=== PATIENT | male | born 1985 | race Caucasian/White ===

== ENCOUNTER 2017-01-21 17:40 | Emergency (ER) | payer BC ==
[2017-01-21] MEDS ORDERED: ONDANSETRON 4 MG/2 ML VIAL IVP STA (20:14)
[2017-01-21] MEDS ORDERED: SODIUM CHLORIDE 0.9% 1,000 ML IV STA (20:14)
[2017-01-21 20:30] LABS: Basophils # (A) 0.1 k/uL (0-0.2); Basophils % (A) 0 %; CH 28.9; CHCM 35.3; Eosinophils % (A) 0 %; HGB 15.3 gm/dL (13.0-17.5); Luc # (Auto) 0.08; Luc % (Auto) 1; Lymphocytes # (A) 1.1 k/uL (1.0-4.8); Lymphocytes % (A) 10 %; MCH 28.7 pg (25.0-35.0); MCHC 34.9 g/dL (31.0-37.0); MCV 82.3 fL (80.0-100.0); Mean Platelet Volume 8.3; Monocytes # (A) 0.2 k/uL (0-1.0); Monocytes % (A) 2 %; Neutrophils # (A) 9.6 k/uL (1.3-7.7); Neutrophils % (A) 87 %; RBC 5.34 m/uL (4.30-5.90); WBC (Perox) 10.67
[2017-01-21 20:38] LABS: ALT 45 U/L (21-72); AST 47 U/L (17-59); Alkaline Phosphatase 69 U/L (38-126); Amylase 64 U/L (30-110); Anion Gap 14 mmol/L; Blood Urea Nitrogen 15 mg/dL (9-20); Calcium 9.9 mg/dL (8.4-10.2); Carbon Dioxide 23 mmol/L (22-30); Chloride 104 mmol/L (98-107); Glucose 100 mg/dL (74-99); Non-African American GFR(MDRD) >60 (>60 ml/min/1.73 sqM); Potassium 4.8 mmol/L (3.5-5.1); Sodium 141 mmol/L (137-145); Total Protein 8.5 g/dL (6.3-8.2)
[2017-01-21 20:40] LABS: Amorphous Sediment,Urine Occasional /hpf; Appearance,Urine Cloudy (Clear); Bilirubin,Urine Negative (Negative); Glucose,Urine (UA) Negative (Negative); Ketones,Urine 2+ (Negative); Leukocyte Esterase,Urine Negative (Negative); Mucus,Urine Rare /hpf; Nitrite,Urine Negative (Negative); Particle Count 13955; Protein,Urine 1+ (Negative); RBC,Urine >182 /hpf (0-5); Specific Gravity,Urine 1.021 (1.001-1.035); UA Billing (MACRO vs. MICRO) MICRO; Urobilinogen,Urine <2.0 mg/dL (<2.0); WBC,Urine 5 /hpf (0-5)
--- NOTE | 2017-01-21 21:24 | CT ---
EXAMINATION TYPE: CT abdomen pelvis wo con DATE OF EXAM: 01/21/2017 9:09 PM HISTORY: Pelvic pain with urination changes CT DLP: 402.8 mGycm. Automated Exposure Control for Dose Reduction was Utilized. TECHNIQUE: CT scan of the abdomen and pelvis is performed without oral or IV contrast. COMPARISON: NONE FINDINGS: Within the limitations of a non-contrast study, the following observations are made. LUNG BASES: Dependent atelectatic change in both lung bases is present. LIVER/GB: No significant abno rmality is appreciated. PANCREAS: No significant abnormality is seen. SPLEEN: No significant abnormality is seen. ADRENALS: No significant abnormality is seen. KIDNEYS: There is 2 mm distal left ureter calculus on axial image 123 right before UVJ with asymmetri c mild left-sided pyelocaliectasis and proximal hydroureter. No additional renal calculi are seen forrest aterally. No right-sided hydronephrosis is seen. No intraluminal calculus and bladder is noted. BOWEL: Normal-appearing appendix is seen from cecum. GENITAL ORGANS: No gross abnormality seen. LYMPH NODES: No greater than 1cm abdominal or pelvic lymph nodes are appreciated. OSSEOUS STRUCTURES: No significant abnormality is seen. OTHER: No significant additional abnormality is seen. IMPRESSION: There is 2 mm partially obstructing calculus in distal left ureter causing mild left-side d hydronephrosis.
--- NOTE | 2017-01-21 21:25 | XR ---
EXAMINATION TYPE: XR KUB DATE OF EXAM: 01/21/2017 8:35 PM CLINICAL HISTORY: Abdominal pain with nausea. TECHNIQUE: 2 upright KUB images of the abdomen are obtained.. COMPARISON: None. FINDINGS: There is some paucity of bowel gas. Visualized gas is noted in nondistended stomach as well as small and large bowel loops. There is no visceromegaly, pneumoperitoneum, or abnormal calcifica tion appreciated. The lung bases are clear and the osseous structures are intact. IMPRESSION: Overall nonobstructive bowel gas pattern.
[2017-01-21 21:28] VITALS: BP 140/90; PULSE 90; RESP 18; TEMP 98.5
--- NOTE | 2017-01-21 21:56 | ED ---
Abdominal Pain HPI - General Chief Complaint: Abdominal Pain Stated Complaint: abd pain Time Seen by Provider: 01/21/17 20:03 Source: patient, RN notes reviewed Mode of arrival: ambulatory Limitations: no limitations - History of Present Illness Initial Comments: Patient is a 31 year old male with one day of lower suprapubic pain. Patient denies any hsitory of kidney stones but did notice some blood in his urine. Patient states he had the sharp pain, and vomited, but then the pain has subsieded. Patient states that his pain is 0/10 at this time. Patient has some mild suprapubic tenderness, denies any BACK PAIN. Denies possibility for STI or penile discharge. - Related Data Home Medications Medication Instructions Recorded Confirmed Buprenorphine HCl/Naloxone HCl 1 tab SL TID 01/21/17 01/21/17 [Zubsolv 5.7-1.4 mg Tablet Sl] Previous Rx's Medication Instructions Recorded Ketorolac [Toradol] 10 mg PO Q6HR #12 tab 01/21/17 Tamsulosin [Flomax] 0.4 mg PO DAILY #5 cap 01/21/17 Allergies Allergy/AdvReac Type Severity Reaction Status Date / Time Penicillins Allergy Unknown Verified 01/21/17 20:17 Childhood Review of Systems ROS Statement: Those systems with pertinent positive or pertinent negative responses have been documented in the HPI. ROS Other: All systems not noted in ROS Statement are negative. Past Medical History Past Medical History: No Reported History History of Any Multi-Drug Resistant Organisms: None Reported Past Surgical History: No Surgical Hx Reported Past Psychological History: No Psychological Hx Reported Smoking Status: Current every day smoker Past Alcohol Use History: None Reported Past Drug Use History: None Reported General Exam - General Exam Comments Initial Comments: Well apearing 31 year old male, no distress. Limitations: no limitations General appearance: alert, in no apparent distress Head exam: Present: atraumatic, normocephalic, normal inspection Eye exam: Present: normal appearance, PERRL, EOMI. Absent: scleral icterus, conjunctival injection, periorbital swelling ENT exam: Present: normal exam, mucous membranes moist Neck exam: Present: normal inspection. Absent: tenderness, meningismus, lymphadenopathy Respiratory exam: Present: normal lung sounds bilaterally. Absent: respiratory distress, wheezes, rales, rhonchi, stridor Cardiovascular Exam: Present: regular rate, normal rhythm, normal heart sounds. Absent: systolic murmur, diastolic murmur, rubs, gallop, clicks GI/Abdominal exam: Present: soft, normal bowel sounds. Absent: distended, guarding, rebound, rigid Back exam: Present: normal inspection Neurological exam: Present: alert, oriented X3, CN II-XII intact Psychiatric exam: Present: normal affect, normal mood Skin exam: Present: warm, dry, intact, normal color. Absent: rash Course Vital Signs 01/21/17 01/21/17 18:06 21:27 Temperature 98.1 F 98.5 F Pulse Rate 95 90 Respiratory 20 18 Rate Blood Pressure 143/86 140/90 O2 Sat by Pulse 100 99 Oximetry Medical Decision Making - Medical Decision Making Patient is a 31 year old male with one day of lower suprapubic pain. Patient denies any hsitory of kidney stones but did notice some blood in his urine. Patient states he had the sharp pain, and vomited, but then the pain has subsieded. Patient states that his pain is 0/10 at this time. Patient has some mild suprapubic tenderness, denies any BACK PAIN. Denies possibility for STI or penile discharge. Patient urinalysis, patient has significant hematuria. Patient given toradol. CT shows 3mm stone in left vesicoureter causeing mild hyrdonephrosis. Patient will be discharged with Flomax, toradol, and patient reports he is taking subsolv so he does not want narcotic pain medication. PAtient agrees with treatment plan and will comply. - Lab Data Result diagrams: 01/21/17 19:56 01/21/17 19:56 Lab Results 01/21/17 01/21/17 01/21/17 Range/Units 19:56 19:56 19:56 WBC 11.0 H (3.8-10.6) k/uL RBC 5.34 (4.30-5.90) m/uL Hgb 15.3 (13.0-17.5) gm/dL Hct 44.0 (39.0-53.0) % MCV 82.3 (80.0-100.0) fL MCH 28.7 (25.0-35.0) pg MCHC 34.9 (31.0-37.0) g/dL RDW 13.0 (11.5-15.5) % Plt Count 196 (150-450) k/uL Neutrophils % 87 % Lymphocytes % 10 % Monocytes % 2 % Eosinophils % 0 % Basophils % 0 % Neutrophils # 9.6 H (1.3-7.7) k/uL Lymphocytes # 1.1 (1.0-4.8) k/uL Monocytes # 0.2 (0-1.0) k/uL Eosinophils # 0.0 (0-0.7) k/uL Basophils # 0.1 (0-0.2) k/uL Sodium 141 (137-145) mmol/L Potassium 4.8 (3.5-5.1) mmol/L Chloride 104 (98-107) mmol/L Carbon Dioxide 23 (22-30) mmol/L Anion Gap 14 mmol/L BUN 15 (9-20) mg/dL Creatinine 0.81 (0.66-1.25) mg/dL Est GFR (MDRD) Af Amer >60 (>60 ml/min/1.73 sqM) Est GFR (MDRD) Non-Af >60 (>60 ml/min/1.73 sqM) Glucose 100 H (74-99) mg/dL Calcium 9.9 (8.4-10.2) mg/dL Total Bilirubin 1.0 (0.2-1.3) mg/dL AST 47 (17-59) U/L ALT 45 (21-72) U/L Alkaline Phosphatase 69 (38-126) U/L Total Protein 8.5 H (6.3-8.2) g/dL Albumin 5.2 H (3.5-5.0) g/dL Amylase 64 (30-110) U/L Lipase 78 (23-300) U/L Urine Color Yellow Urine Appearance Cloudy (Clear) Urine pH 7.0 (5.0-8.0) Ur Specific [place] 1.021 (1.001-1.035) Urine Protein 1+ H (Negative) Urine Glucose (UA) Negative (Negative) Urine Ketones 2+ H (Negative) Urine Blood Large H (Negative) Urine Nitrite Negative (Negative) Urine Bilirubin Negative (Negative) Urine Urobilinogen <2.0 (<2.0) mg/dL Ur Leukocyte Esterase Negative (Negative) Urine RBC >182 H (0-5) /hpf Urine WBC 5 (0-5) /hpf Amorphous Sediment Occasional H (None) /hpf Urine Mucus Rare H (None) /hpf - Radiology Data Radiology results: report reviewed 2mm left ureter stone, parially obststructing. left mild hydronephrosis. Disposition Clinical Impression: Left ureteral stone Disposition: HOME SELF-CARE Condition: Stable Instructions: Ureteral Stones (ED) Additional Instructions: Patient is to rest, increase fluids and take prescription as directed. Return the emergency Department if any alarming signs or symptoms occur. Prescriptions: Ketorolac [Toradol] 10 mg PO Q6HR #12 tab Tamsulosin [Flomax] 0.4 mg PO DAILY #5 cap Referrals: Kevon Borja MD [Primary Care Provider] - 1-2 days Time of Disposition: 21:50
[2017-01-21] MEDS ORDERED: KETOROLAC 30 MG/ML 1 ML VIAL IVP STA (22:01)
== END 2017-01-21 22:32 | disposition home or self-care (01) ==
LOC: EC 17:40
DX: N13.2 Hydronephrosis with renal and ureteral calculous obstruction (principal); Z88.0 Allergy status to penicillin; F17.200 Nicotine dependence, unspecified, uncomplicated; Z79.899 Other long term (current) drug therapy
CPT/HCPCS: 36415; 80053; 82150; 83690; 85025; 81001; 74000; 74176; 99284; 96374; 96375; 96361; J1885

== ENCOUNTER 2020-07-09 14:44 | Emergency (ER) | payer BC, OTHER ==
[2020-07-09 15:07] VITALS: TEMP 98.4
[2020-07-09] MEDS ORDERED: predniSONE 50 MG TAB PO STA (15:29)
--- NOTE | 2020-07-09 15:36 | ED ---
General Adult HPI - General Chief complaint: Allergic Reaction Stated complaint: allergic reaction Time Seen by Provider: 07/09/20 15:05 Source: patient, RN notes reviewed Mode of arrival: ambulatory Limitations: no limitations - History of Present Illness Initial comments: Patient is a pleasant 35-year-old male presenting to the emergency Department wi th complaints of rash on his arms and legs. Onset of symptoms was 6 days ago. 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 Patient states it is not getting better. Patient states it is very itchy. No pain. No fever. No affected area where clothing was present. There is no truncal association or face or head Association. No history of similar symptoms previously. Patient was on clindamycin however discontinue that. That was for a tooth problem. - Related Data Home Medications Medication Instructions Recorded Confirmed Buprenorphine HCl/Naloxone HCl 1 tab SL TID 01/21/17 01/21/17 [Zubsolv 5.7-1.4 mg Tablet Sl] Previous Rx's Medication Instructions Recorded Ketorolac [Toradol] 10 mg PO Q6HR #12 tab 01/21/17 Tamsulosin [Flomax] 0.4 mg PO DAILY #5 cap 01/21/17 Cephalexin [Keflex] 500 mg PO TID #21 cap 07/09/20 predniSONE [Deltasone] 20 mg PO BID #8 tab 07/09/20 Allergies Allergy/AdvReac Type Severity Reaction Status Date / Time Penicillins Allergy Unknown Verified 07/09/20 15:06 Childhood Review of Systems ROS Statement: Those systems with pertinent positive or pertinent negative responses have been documented in the HPI. ROS Other: All systems not noted in ROS Statement are negative. Constitutional: Denies: fever Eyes: Denies: eye pain ENT: Denies: ear pain Respiratory: Denies: cough Cardiovascular: Denies: chest pain Endocrine: Denies: fatigue Gastrointestinal: Denies: abdominal pain Genitourinary: Denies: dysuria Musculoskeletal: Denies: back pain Skin: Reports: as per HPI, rash, pruritus Neurological: Denies: headache Past Medical History Past Medical History: No Reported History History of Any Multi-Drug Resistant Organisms: None Reported Past Surgical History: No Surgical Hx Reported Past Psychological History: No Psychological Hx Reported Past Alcohol Use History: None Reported Past Drug Use History: None Reported General Exam Limitations: no limitations General appearance: alert, in no apparent distress Head exam: Present: normocephalic Eye exam: Present: normal appearance Neck exam: Present: normal inspection Respiratory exam: Present: normal lung sounds bilaterally Cardiovascular Exam: Present: regular rate, normal rhythm GI/Abdominal exam: Present: soft. Absent: tenderness Extremities exam: Present: other (Rash) Neurological exam: Present: alert Psychiatric exam: Present: normal affect, normal mood Skin exam: Present: other (Patient does have erythematous rash with sharp transition at the mid thigh and upper arm level. There is mild eschar where the patient states he has been itching. There may be minimal swelling of the right forearm. No tenderness.) Course Vital Signs 07/09/20 15:03 Temperature 98.4 F Pulse Rate 84 Respiratory 18 Rate Blood Pressure 132/77 O2 Sat by Pulse 99 Oximetry Medical Decision Making - Medical Decision Making Patient's history and rash are consistent with exposure with sandblasting. Patient will be provided steroids. Patient will also be provided antibiotics secondary to risk of possible secondary infection. Patient is informed of slight possibility of reaction with Keflex. Disposition Clinical Impression: Allergic reaction Disposition: HOME SELF-CARE Condition: Stable Instructions (If sedation given, give patient instructions): Allergies (ED), Contact Dermatitis (ED) Additional Instructions: Please follow-up with primary care physician in the next couple days for rech ariadne. [id number] Benadryl as needed. [id number] 1% hydrocortisone cream as needed. Return for fevers, swelling, pain, worsening symptoms or other concerns. Prescription has been sent to [facility] Prescriptions: predniSONE [Deltasone] 20 mg PO BID #8 tab Cephalexin [Keflex] 500 mg PO TID #21 cap Is patient prescribed a controlled substance at d/c from ED?: No Referrals: Pablito Aguilera MD [Primary Care Provider] - 1-2 days Time of Disposition: 15:35
[2020-07-09 16:14] VITALS: BP 116/64; PULSE 88; RESP 14
== END 2020-07-09 16:09 | disposition home or self-care (01) ==
LOC: EC 14:44
DX: T78.49XA Other allergy, initial encounter (principal); R21 Rash and other nonspecific skin eruption; Z88.0 Allergy status to penicillin; Y92.69 Other specified industrial and construction area as the place of occurrence of the external cause
CPT/HCPCS: 99282; J7512

== ENCOUNTER 2021-05-01 | Emergency (ER) | payer BC, OTHER | END 2021-05-01 21:23 | disposition home or self-care (01) | CPT/HCPCS: 99282 ==